=== PATIENT | male | born 1965 | race Caucasian/White ===

== ENCOUNTER 2018-11-10 00:55 | Emergency (ER) | payer OTHER ==
[~2018-11-10] VITALS: Ht 180.3 cm; Wt 110.7 kg
[2018-11-10 01:05] VITALS: Ht 180.3 cm; Wt 110.7 kg
[2018-11-10 02:40] VITALS: BP 134/81
== END 2018-11-10 02:41 | disposition home or self-care (01) ==
LOC: ED 00:55
DX: M54.6 Pain in thoracic spine (principal); I10 Essential (primary) hypertension; E11.9 Type 2 diabetes mellitus without complications; E03.9 Hypothyroidism, unspecified
CPT/HCPCS: J1885